=== PATIENT | female | born 1985 | race Caucasian/White ===

== ENCOUNTER 2020-08-01 11:37 | Outpatient (CLI) | payer OTHER, SELFPAY ==
[2020-08-03 14:28] LABS: HIV 1 2 Ag Ab 4th Gen w Rflxs Non-reactive (Non-reactive)
== END 2020-08-01 11:38 | disposition home or self-care (01) ==
LOC: ANHBWCLAB 11:41
PROVIDERS: Visit Provider Obstetrics & Gynecology
DX: Z34.93 Encounter for supervision of normal pregnancy, unspecified, third trimester (principal); Z3A.30 30 weeks gestation of pregnancy
CPT/HCPCS: 36415; 87389

== ENCOUNTER 2020-08-08 19:27 | Observation (INO) | payer OTHER, SELFPAY ==
[2020-08-08 19:47] VITALS: RESP 20; TEMP 36.8
[2020-08-08 20:19] VITALS: TEMP 36.7
--- NOTE | 2020-08-08 21:09 | PM.IMHP ---
H&P: HPI History of Present Illness Date/Time: 08/08/20 21:09 Patient is a 35-year-old LMP 01/09/2020 currently 30 weeks 2 days gestation with SHANNON 10/15/2020 who presented to labor and delivery with complaints of leakage of fluid. Patient states that she woke up at 1:00 a.m. with leakage of fluid. Patient states she started walking towards restroom and noticed fluid flowing down her legs. Patient assumed this was urine at the time. Patient went back to sleep and woke up later to go to work. She states that the leakage continued throughout the day, particularly when she bent over at work and felt small trickles of fluid. Patient called OB office at approximately 11:30 a.m. and was advised to proceed to labor and delivery for further evaluation. 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 Patient states that she went home to eat prior to coming to labor and delivery. She denies any vaginal bleeding or contractions. Reports good movement. Last intercourse was 3 days ago. Patient recently transferred care to [facility] and has been seen once on 08/01/20. Patient reported an uncomplicated course until today. Chief Complaint: leakage of fluid Review of Systems Review of Systems: All systems reviewed & are unremarkable except as noted in HPI and below Constitutional: Constitutional: Reports as per HPI, Reports no additional constitutional complaints, Denies chills, Denies fever(s), Denies headache(s) and Denies night sweats Eyes: Eyes: Reports as per HPI and Reports no additional eye complaints ENT: Reports system reviewed and no additional complaints, except as documented, Reports as per HPI, Reports Normal hearing present and Denies headache(s) Cardiovascular: Cardiovascular: Reports as per HPI, Reports no additional cardiovascular complaints, Denies chest pain and Denies dyspnea Respiratory: Respiratory: Reports as per HPI, Reports no additional respiratory complaints, Denies cough and Denies dyspnea Gastrointestinal: Gastrointestinal: Reports as per HPI, Reports no additional gastrointestinal complaints, Denies abdominal pain, Denies change in bowel habits, Denies change in stool character, Denies nausea and Denies vomiting Genitourinary: Genitourinary: Reports no additional female genitourinary complaints, Reports as per HPI, Denies abnormal vaginal bleeding, Denies genital lesions, Denies hot flashes, Denies dyspareunia, Denies pelvic pain, Denies sexual dysfunction, Denies urinary incontinence, Denies vaginal discharge, Denies vaginal dryness and Denies vaginal odor Musculoskeletal: Musculoskeletal: Reports no additional musculoskeletal complaints and Reports as per HPI Integumentary/Breasts: Skin/Breast: Reports system reviewed and no additional complaints, except as docu, Reports as per HPI, Denies breast pain and Denies nipple discharge Neurologic: Reports system reviewed and no additional complaints, except as documented, Reports as per HPI, Reports Normal hearing present and Denies headache(s) Psychiatric: Psychiatric: Reports no additional psychiatric complaints, Reports as per HPI, Denies anxiety and Denies depression Endocrine: Endocrine: Reports no additional endocrine complaints and Reports as per HPI Hematologic/Lymphatic: Hematologic/Lymphatic: Reports no additional hematologic/lymphatic complaints and Reports as per HPI Allergic/Immunologic: Allergic/Immunologic: Reports no additional allergic/immunologic complaints and Reports as per HPI PMFSH Past Medical History Medical History Abnormal Pap smear of cervix 04/04/20 ASCUS, HPV + Anxiety Bipolar 1 disorder Depression Genital warts Missed x1 at 9w gestation, passed on own without intervention Surgical History Surgical History History of c
[2020-08-08] MEDS: LACTATED RINGERS 1,000 ML 125 ML IV CONT (21:11)
[2020-08-08] MEDS: AMPICILLIN 2 GM/NS 100 ML 2 GM/100 ML BAG IVPB (21:11)
[2020-08-08] MEDS: BETAMETHASONE SOD PHOS/ACETATE 30 MG/5 ML VIAL 12 MG IM (21:31)
[2020-08-08 21:35] LABS: Basophils Percent Auto 0.3 % (0.2-1.2); Eosinophils Absolute Auto 0.1 K/mm3 (0-0.3); Eosinophils Percent Auto 0.7 % (0-4.4); Hematocrit 27.7 % (37.0-47.0); Hemoglobin 9.2 g/dL (12.0-15.0); Immature Granulocyte Absolute 0.05 K/mm3 (0.00-0.031); Immature Granulocyte Percent A 0.4 % (0-0.5); Lymphocytes Absolute Auto 2.15 K/mm3 (0.9-3.2); Lymphocytes Percent Auto 18.7 % (18.3-44.2); Mean Corpuscular HGB Conc 33.2 g/dl (32-36); Mean Corpuscular Hemoglobin 27.2 pg (26-34); Mean Platelet Volume 9.6 fl (7.4-10.4); Monocytes Absolute Auto 0.7 K/mm3 (0.1-0.6); Monocytes Percent Auto 6.3 % (2.6-8.5); Neutrophils Absolute Auto 8.5 K/mm3 (1.3-6.7); Neutrophils Percent Auto 73.6 % (45.5-73.1); Platelet Count Result 342 k/mm3 (150-375); Red Blood Count 3.38 M/mm3 (4.2-5.4); Red Cell Distribution Width 13.5 % (11.5-14.5); White Blood Count 11.5 K/mm3 (4.5-10.0)
[2020-08-08 21:41] LABS: Add Urine Microscopic? NO; Appearance Urine Clear (Clear); Bilirubin Urine Negative (Negative); Blood Urine Negative (Negative); Color Urine Straw (Yellow); Glucose Urine UA Negative (Negative); Ketones Urine Negative (Negative); Leukocyte Esterase Ur Negative LEU/UL (Negative); Nitrate Urine Negative (Negative); Protein Urine Negative (Negative); Specific Grav Ur 1.006 (1.001-1.035); Urobilinogen Urine Negative mg/dL (<2.0)
[2020-08-08] MEDS: MAGNESIUM SULF 20GM/WATER500ML 500 ML 300 MG IV CONT (21:42)
[2020-08-08 21:56] LABS: Amphetamine Screen Urine Negative (Negative); Barbiturate Screen Urine Negative (Negative); Benzodiazepines Screen Urine Negative (Negative); Cannabinoid Screen Urine Negative (Negative); Cocaine Screen Urine Negative (Negative); Methadone Screen Urine Negative (Negative); Opiate Screen Urine Negative (Negative); Phencyclidine Screen Urine Negative (Negative)
[2020-08-08 22:00] VITALS: BP 125/69; PULSE 91
[2020-08-08 22:10] VITALS: BP 129/74; PULSE 96; RESP 20; TEMP 36.5
[2020-08-08 22:33] LABS: HIV 1/2 Ab P24 Ag Result Negative (Negative)
[2020-08-08 22:48] LABS: Hepatitis B Surface Antigen Negative (Negative)
[2020-08-09 00:06] VITALS: BMI 23.4
[2020-08-09 07:00] LABS: Rapid Plasma Reagin Non-Reactive (NonReactive)
== END 2020-08-08 22:26 | disposition other institution (70) ==
LOC: ANHOBPP 08-09 00:15 → ANHOBOP 08-10 10:31 → ANHLDR 08-10 10:33
PROVIDERS: Admitting Provider Student in an Organized Health Care Education/Training Program; Visit Provider Student in an Organized Health Care Education/Training Program
DX: O42.913 Preterm premature rupture of membranes, unspecified as to length of time between rupture and onset of labor, third trimester (principal); Z3A.30 30 weeks gestation of pregnancy
CPT/HCPCS: 36415; 80307; 81003; 84112; 85025; 86592; 86703; 86762; 86850; 86900; 86901; 87086; 87340; 96365; 96372; 96375; G0378; G0379; G0432; J0290; J0456; J0702; J3475; J7060; J7120